=== PATIENT | female | born 1950 | race Caucasian/White ===

== ENCOUNTER → 2016-10-30 | Outpatient (CLI) | payer MEDICARE | END | disposition home or self-care (01) | LOC: BFHH 09:45 | PROVIDERS: ATTEND Family Medicine | DX: I11.0 Hypertensive heart disease with heart failure (principal); I50.42 Chronic combined systolic (congestive) and diastolic (congestive) heart failure; E03.9 Hypothyroidism, unspecified; E78.4 Other hyperlipidemia; R53.83 Other fatigue ==

== ENCOUNTER → 2017-06-11 | Outpatient (CLI) | payer MEDICARE | END | disposition home or self-care (01) | LOC: GMAJ 16:30 | PROVIDERS: ATTEND Family Medicine | DX: I50.32 Chronic diastolic (congestive) heart failure (principal); R06.02 Shortness of breath ==

== ENCOUNTER 2017-07-22 02:11 | Emergency (ER) | payer MEDICARE, MEDICAID ==
[2017-07-22 02:41] VITALS: TEMP 98
[2017-07-22] MEDS ORDERED: ONDANSETRON ODT 8 MG TAB SL ONE (02:48)
--- NOTE | 2017-07-22 03:55 | RAD ---
Examination: XR ABDOMEN 2 VIEWS SUPINE ERECT dated 07/22/2017 2:47 AM GUEST SERVICES ASSOCIATE History: nausea Comparison: None Technique: Frontal view of the chest, abdomen, and pelvis. FINDINGS: The lungs are clear. Unremarkable cardiac silhouette. No free air. A probable G-tube projects over the epigastric region. There is a left-sided catheter with a port. Right upper quadrant cholecystectomy clips. General paucity of bowel gas. No suspicious calcifications. IMPRESSION: Nonspecific general paucity of bowel gas. Otherwise no acute disease. Electronically signed by: Dominic Zabala MD 07/22/2017 3:53 AM GUEST SERVICES ASSOCIATE
--- NOTE | 2017-07-22 06:47 | ED.PDOC ---
History of Present Illness - General Chief Complaint: GI Problem Stated Complaint: feels sick, vomited x 1 Time Seen by Provider: 07/22/17 02:41 Source: patient Exam Limitations: no limitations - History of Present Illness Initial Comments: he patient is a 67-year-old female presenting to the emergency room secondary to reported nausea and vomiting for the last 4-6 hours prior to arrival. The patient reports she had some mild constipation and took a different laxative and she normally does. Within an hour she started having stomach cramping and what she reports is vomiting. EMS has not seen any evidence of any vomitus nor have recent she's been here. She retches some. She definitely does have anxiety. There is definitely an aspect of attention seeking. she does have a very long list of legitimate medical problems obviously. Physical exam was not really reveal any new definitive issue. Review of systems is struggling for a number of positive chronic findings all of which the patient reports a smile. The patient is very talkative. She does not retch at all when she is talking about her multitude of medical problems. It is when she is left alone that she starts retching. No evidence of any fever or sore throat. Timing/Duration: 4-6 hours Severity: moderate Improving Factors: nothing Worsening Factors: nothing Associated Symptoms: loss of appetite, malaise, nausea/vomiting Allergies/Adverse Reactions: Allergies Tetanus Toxoid Allergy (Verified 07/22/17 02:41) Home Medications: Ambulatory Orders Cephalexin Monohydrate [Keflex] 500 mg PO Q8H #20 cap 07/22/17 Review of Systems - Review of Systems Review of Systems: 07/22/17 06:47 for new symptoms only: Constitutional: States: malaise EENTM: States: no symptoms reported Respiratory: States: no symptoms reported Cardiology: States: no symptoms reported Gastrointestinal/Abdominal: States: abdominal pain - cramping, nausea, vomiting Musculoskeletal: States: no symptoms reported Skin: States: no symptoms reported Neurological: States: anxiety Endocrine: States: no symptoms reported All other Systems: No Change from Baseline Past Medical History (General) - Patient Medical History Hx Asthma: Yes Hx of COPD: Yes Hx Diabetes: No Hx MRSA: Yes - 2016 MRSA Source:: Wound Surgical History: cholecystectomy - Vaccination History Hx Tetanus, Diphtheria Vaccination: No Hx Influenza Vaccination: No - Triage Comment ED Triage Comment: states became sick after getting up to use restroom. Vomited x 1 Family Medical History - Family History Father Family History: Unknown Physical Exam - Physical Exam General Appearance: Alert, Anxious, No apparent distress Eye Exam: bilateral normal Ears, Nose, Throat: hearing grossly normal, normal ENT inspection, normal pharynx Neck: supple, normal inspection Respiratory: lungs clear, normal breath sounds, no respiratory distress, no accessory muscle use Cardiovascular/Chest: normal peripheral pulses, regular rate, rhythm, no edema Peripheral Pulses: radial,right: 2+, radial,left: 2+, dorsalis pedis,right: 2+, dorsalis pedis,left: 2+ Gastrointestinal/Abdominal: soft, other - morbidly obese with multiple obvious hernias none which appear to be particularly painful to palpation Rectal Exam: deferred Extremity: non-tender, no calf tenderness, normal capillary refill, pedal edema - ild chronic Neurologic: alert, oriented x 3, other - significant anxiety Skin Exam: normal color Comments: Vital Signs - 24 hr 07/22/17 02:23 Temperature 98.0 F Pulse Rate [ 54 L Right] Respiratory 18 Rate Blood Pressure 185/84 [Left Arm] O2 Sat by Pulse 96 Oximetry Progress - Progress Progress: 07/22/17 06:50 the patient is a 67-year-old female presenting to the emergency room with abdominal cramping that is most likely due to her laxative. She is to increase her fluid intake and increase her fiber intake. We did additionally find a urinary tract infection that does seem likely to be clinically significant. The patient received a dose of Rocephin here and is going to be placed on Keflex 3 times daily for the next 7 days. Urine cultures were being performed. She is to follow-up with her primary care doctor early next week for results of the culture results and change antibiotic therapy if needed. ER warnings were given for any acute worsening. She needs to maintain a bland diet today. She needs to keep follow-up with her home health. he patient is additionally to receive a dose of Diflucan here for mild intertrigo. - Results/Orders Results/Orders: Laboratory Tests 07/22/17 07/22/17 07/22/17 03:45 03:45 03:45 WBC 9.1 RBC 4.29 Hgb 13.3 Hct 39.0 MCV 90.8 MCH 31.0 MCHC 34.1 RDW 12.1 Plt Count 233 MPV 9.2 Absolute Neuts (auto) 6.10 Absolute Lymphs (auto) 2.20 Absolute Monos (auto) 0.60 Absolute Eos (auto) 0.10 Absolute Basos (auto) 0.00 Neutrophils % 67.9 Lymphocytes % 24.5 Monocytes % 6.1 Eosinophils % 1.1 Basophils % 0.4 Sodium 140 Potassium 3.8 Chloride 101 Carbon Dioxide 29 Anion Gap 13.8 BUN 7 Creatinine < 0.40 L BUN/Creatinine Ratio 17.0 Random Glucose 158 H Serum Osmolality 280.7 Lactic Acid 1.3 Calcium 9.2 Magnesium 2.0 Total Bilirubin 0.5 AST 28 ALT 27 Alkaline Phosphatase 74 Creatine Kinase 118 CK-MB (CK-2) 3.6 CK-MB (CK-2) % Not Reportable Troponin I 0.02 B-Natriuretic Peptide 37.7 Serum Total Protein 7.4 Albumin 4.0 Globulin 3.4 Albumin/Globulin Ratio 1.2 Amylase 29 Lipase 22 Urine Color Urine Appearance Urine pH Ur Specific [place] Urine Protein Urine Glucose (UA) Urine Ketones Urine Blood Urine Nitrite Urine Bilirubin Urine Urobilinogen Ur Leukocyte Esterase Urine RBC Urine WBC Ur Epithelial Cells Urine Bacteria 07/22/17 06:00 WBC RBC Hgb Hct MCV MCH MCHC RDW Plt Count MPV Absolute Neuts (auto) Absolute Lymphs (auto) Absolute Monos (auto) Absolute Eos (auto) Absolute Basos (auto) Neutrophils % Lymphocytes % Monocytes % Eosinophils % Basophils % Sodium Potassium Chloride Carbon Dioxide Anion Gap BUN Creatinine BUN/Creatinine Ratio Random Glucose Serum Osmolality Lactic Acid Calcium Magnesium Total Bilirubin AST ALT Alkaline Phosphatase Creatine Kinase CK-MB (CK-2) CK-MB (CK-2) % Troponin I B-Natriuretic Peptide Serum Total Protein Albumin Globulin Albumin/Globulin Ratio Amylase Lipase Urine Color Yellow Urine Appearance Cloudy Urine pH 7.0 Ur Specific [place] 1.020 Urine Protein Negative Urine Glucose (UA) Negative Urine Ketones 15 H Urine Blood Small H Urine Nitrite Negative Urine Bilirubin Negative Urine Urobilinogen 0.2 Ur Leukocyte Esterase Trace H Urine RBC 3-5 H Urine WBC 20-30 H Ur Epithelial Cells 3-5 Urine Bacteria 4+ H x-ray of the abdomen really shows only chronic findings. No evidence of any bowel obstruction. No perforation. No large amount oflocalized stool. Departure - Departure Clinical Impression: Cystitis, Intertrigo Nausea & vomiting Qualifiers: Vomiting type: unspecified Vomiting Intractability: non-intractable Qualified Code(s): R11.2 - Nausea with vomiting, unspecified Disposition: Discharge to Home for HH Condition: Fair Departure Forms: ED Discharge - Pt. Copy, Patient Portal Self Enrollment Instructions: DI for Urinary Tract Infection (UTI), DI for Intertrigo Diet: bland diet - High-fiber low-fat Activity: increase activity as tolerated Referrals: Dominic Rapp MD [Primary Care Provider] - 1-5 Days Prescriptions: Cephalexin Monohydrate [Keflex] 500 mg PO Q8H #20 cap Home Medications: Ambulatory Orders Cephalexin Monohydrate [Keflex] 500 mg PO Q8H #20 cap 07/22/17 Additional Instructions: the patient is a 67-year-old female presenting to the emergency room with abdominal cramping that is most likely due to her laxative. She is to increase her fluid intake and increase her fiber intake. We did additionally find a urinary tract infection that does seem likely to be clinically significant. The patient received a dose of Rocephin here and is going to be placed on Keflex 3 times daily for the next 7 days. Urine cultures were being performed. She is to follow-up with her primary care doctor early next week for results of the culture results and change antibiotic therapy if needed. ER warnings were given for any acute worsening. She needs to maintain a bland diet today. She needs to keep follow-up with her home health. he patient is additionally to receive a dose of Diflucan here for mild intertrigo.
[2017-07-22] MEDS ORDERED: cefTRIAXone SODIUM 1 GM VIAL IM ONE (06:56)
[2017-07-22] MEDS ORDERED: FLUCONAZOLE 100 MG TAB PO ONE (06:56)
[2017-07-22] MEDS ORDERED: LIDOCAINE 1% 10 ML VIAL INJ ONE (07:05)
[2017-07-22 08:24] VITALS: BP 137/90; O2SAT 99
== END 2017-07-22 08:24 | disposition home health service (06) ==
LOC: ER 02:11
DX: N30.00 Acute cystitis without hematuria (principal); R11.2 Nausea with vomiting, unspecified; L30.4 Erythema intertrigo; J44.9 Chronic obstructive pulmonary disease, unspecified; J45.909 Unspecified asthma, uncomplicated; Z90.49 Acquired absence of other specified parts of digestive tract; Z86.14 Personal history of Methicillin resistant Staphylococcus aureus infection; Z88.7 Allergy status to serum and vaccine
CPT/HCPCS: 36415; 74020; 80053; 81001; 82150; 82550; 82553; 83605; 83690; 83735; 83880; 84484; 85025; 87086; 87502; J0696

== ENCOUNTER 2017-07-25 15:43 | Emergency (ER) | payer MEDICARE, MEDICAID ==
--- NOTE | 2017-07-25 16:35 | ED.PDOC ---
History of Present Illness - General Time Seen by Provider: 07/25/17 16:07 Source: patient Exam Limitations: no limitations - History of Present Illness Initial Comments: the patient is a 67-year-old female presenting to the emergency room after a fall at home today. She was using her rolling walker when he got out from under her and she fell and tried to catch herself with her right hand. She has pain towards the wrist on the radius side. No gross deformity. There is some mild swelling that may or may not be chronic. Range of motion passively appears to be preserved. No obvious crepitus. She appears to be neurovascularly at her baseline. Timing/Duration: 1-3 hours Severity: moderate Improving Factors: immobilization Worsening Factors: movement Associated Symptoms: denies symptoms Allergies/Adverse Reactions: Allergies Tetanus Toxoid Allergy (Verified 07/22/17 02:41) Home Medications: Ambulatory Orders Cephalexin Monohydrate [Keflex] 500 mg PO Q8H #20 cap 07/22/17 Review of Systems - Review of Systems Review of Systems: 07/25/17 16:34 for new symptoms only, as per patient. 07/25/17 16:34 Constitutional: States: no symptoms reported EENTM: States: no symptoms reported Respiratory: States: no symptoms reported, cough Gastrointestinal/Abdominal: States: no symptoms reported Genitourinary: States: no symptoms reported Musculoskeletal: States: see HPI Skin: States: no symptoms reported Neurological: States: no symptoms reported Endocrine: States: no symptoms reported All other Systems: No Change from Baseline Past Medical History (General) - Patient Medical History Hx Asthma: Yes Hx of COPD: Yes Hx Diabetes: No Hx MRSA: Yes - 2015 MRSA Source:: Wound - Vaccination History Hx Tetanus, Diphtheria Vaccination: No Hx Influenza Vaccination: No Family Medical History - Family History Father Family History: Unknown Physical Exam - Physical Exam General Appearance: Alert, Comfortable, No apparent distress, Other - he patient is smiling and joking Eye Exam: bilateral normal Ears, Nose, Throat: hearing grossly normal, normal ENT inspection, normal pharynx Neck: non-tender, supple Respiratory: normal breath sounds, no respiratory distress, no accessory muscle use Cardiovascular/Chest: normal peripheral pulses, other - egular rate Peripheral Pulses: radial,right: 2+, radial,left: 2+ Gastrointestinal/Abdominal: soft - morbidly obese. Chronic large hernias. 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 She appears to have injured her right wrist. X-ray shows no evidence of overt fracture or dislocation. If pain persists or worsens over the coming week and a repeat x- ray may be warranted. The patient is going to be placed in a lace up wrist splint to allow for maximum functionality and prevent further falls. She should follow up with her primary care doctor next week. She should ambulate carefully to prevent further falls. ER warnings were given for any significant worsening. 07/25/17 16:45 Departure - Departure Clinical Impression: Sprain of wrist, right Qualifiers: Encounter type: initial encounter Qualified Code(s): S63.501A - Unspecified sprain of right wrist, initial encounter Disposition: Discharge to Home or Self Care Condition: Fair Diet: diabetic diet Activity: no pushing/pulling with affected limb Referrals: Dominic Rapp MD [Primary Care Provider] - 1-5 Days Home Medications: Ambulatory Orders Cephalexin Monohydrate [Keflex] 500 mg PO Q8H #20 cap 07/22/17 Additional Instructions: the patient is a 67-year-old female that fell at home. She appears to have injured her right wrist. X-ray shows no evidence of overt fracture or dislocation. If pain persists or worsens over the coming week and a repeat x- ray may be warranted. The patient is going to be placed in a lace up wrist splint to allow for maximum functionality and prevent further falls. She should follow up with her primary care doctor next week. She should ambulate carefully to prevent further falls. ER warnings were given for any significant worsening.
--- NOTE | 2017-07-25 16:43 | RAD ---
EXAM DESCRIPTION: Wrist,Right 3 Views CLINICAL HISTORY: 67 years Female, fall at home COMPARISON: Right hand dated May 22, 2010. FINDINGS: Compared to the previous examination, there is a question of minimal cortical irregularity at the ulnar margin of the distal right radius, where a very subtle nondisplaced fracture is difficult to exclude. There is no other evidence of acute fracture or dislocation or destructive bony lesion. Joint spaces appear maintained. Probable slight regional soft tissue swelling. IMPRESSION: Equivocal finding in the distal right radius. Please see comments above. Short-term follow-up films are suggested. If necessary, CT could be obtained. Electronically signed by: Kieran Lawrence 07/25/2017 4:41 PM [facility]
[2017-07-26 18:57] VITALS: BP 186/83; TEMP 97; O2SAT 98
== END 2017-07-25 17:00 | disposition home or self-care (01) ==
LOC: ER 15:43
DX: S63.501A Unspecified sprain of right wrist, initial encounter (principal); J45.909 Unspecified asthma, uncomplicated; J44.9 Chronic obstructive pulmonary disease, unspecified; E66.01 Morbid (severe) obesity due to excess calories; Z68.43 Body mass index [BMI] 50.0-59.9, adult; Z88.7 Allergy status to serum and vaccine; W18.39XA Other fall on same level, initial encounter; Y92.009 Unspecified place in unspecified non-institutional (private) residence as the place of occurrence of the external cause

== ENCOUNTER → 2017-09-03 | Outpatient (CLI) | payer MEDICARE, MEDICAID | LOC: BFHH 15:05 | PROVIDERS: ATTEND Family Medicine | DX: N39.0 Urinary tract infection, site not specified (principal) ==

== ENCOUNTER 2017-09-21 12:05 | Emergency (ER) | payer MEDICARE, MEDICAID ==
[2017-09-21] MEDS ORDERED: IPRATROPIUM/ALBUTEROL 3 ML VIAL NEB ONE (12:18)
--- NOTE | 2017-09-21 12:21 | ED.PDOC ---
History of Present Illness - General Chief Complaint: Respiratory Problem Stated Complaint: sob Time Seen by Provider: 09/21/17 12:17 Source: patient, RN notes reviewed Exam Limitations: no limitations - History of Present Illness Timing/Duration: 24 hours Severity: moderate Activities at Onset: none Possible Cause: chronic episodes Improving Factors: rest Worsening Factors: movement Associated Symptoms: cough, wheezing Allergies/Adverse Reactions: Allergies Tetanus Toxoid Allergy (Verified 09/21/17 12:15) Home Medications: Ambulatory Orders Cephalexin Monohydrate [Keflex] 500 mg PO Q8H #20 cap 07/22/17 Ipratropium/Albuterol (ER Disp [Duoneb ER DISPENSE] 3 ml NEB Q4H #7 vial Ipratropium/Albuterol [Duoneb] 3 ml INH QID #30 vial 09/21/17 Prednisone [Deltasone] 20 mg PO BID #10 tab 09/21/17 levoFLOXacin [Levaquin] 500 mg PO DAILY #7 tab 09/21/17 Review of Systems - Review of Systems Constitutional: States: weakness. Denies: chills, fever EENTM: Denies: nose congestion, throat pain Respiratory: States: cough, short of breath, wheezing Cardiology: Denies: chest pain, edema Gastrointestinal/Abdominal: States: abdominal pain. Denies: diarrhea, nausea, vomiting Genitourinary: States: no symptoms reported Musculoskeletal: Denies: joint pain, muscle pain Skin: Denies: rash Neurological: States: weakness. Denies: headache, numbness Endocrine: States: no symptoms reported Hematologic/Lymphatic: States: no symptoms reported Past Medical History (General) - Patient Medical History Hx Stroke: No Hx Asthma: Yes Hx of COPD: Yes Hx Congestive Heart Failure: Yes Hx Diabetes: No Hx MRSA: Yes - 2015 MRSA Source:: Wound Surgical History: cholecystectomy, other - Vaccination History Hx Tetanus, Diphtheria Vaccination: No - allergic Hx Influenza Vaccination: Yes Hx Pneumococcal Vaccination: No - Social History Hx Tobacco Use: No - Female History Patient is a Female of Child Bearing Age (10 -59 yrs old): No Family Medical History - Family History Father Family History: Unknown Physical Exam - Physical Exam General Appearance: Alert, Obvious distress Eyes, Ears, Nose, Throat Exam: PERRL/EOMI, normal ENT inspection Neck: non-tender, full range of motion Respiratory: chest non-tender, decreased breath sounds, wheezing Cardiovascular/Chest: regular rate, rhythm, no edema Gastrointestinal/Abdominal: normal bowel sounds, soft, other - nonincarcerated umbilical hernia, tender Extremity: normal inspection, no pedal edema Skin Exam: normal color, warm/dry Lymphatic: no adenopathy Departure - Departure Clinical Impression: COPD exacerbation Disposition: Discharge to Home or Self Care Condition: Fair Departure Forms: ED Discharge - Pt. Copy, Patient Portal Self Enrollment Referrals: Dominic Rapp MD [Primary Care Provider] - 1-2 Weeks Prescriptions: Ipratropium/Albuterol [Duoneb] 3 ml INH QID #30 vial Ipratropium/Albuterol (ER Disp [Duoneb ER DISPENSE] 3 ml NEB Q4H #7 vial levoFLOXacin [Levaquin] 500 mg PO DAILY #7 tab Prednisone [Deltasone] 20 mg PO BID #10 tab Home Medications: Ambulatory Orders Cephalexin Monohydrate [Keflex] 500 mg PO Q8H #20 cap 07/22/17 Ipratropium/Albuterol (ER Disp [Duoneb ER DISPENSE] 3 ml NEB Q4H #7 vial Ipratropium/Albuterol [Duoneb] 3 ml INH QID #30 vial 09/21/17 Prednisone [Deltasone] 20 mg PO BID #10 tab 09/21/17 levoFLOXacin [Levaquin] 500 mg PO DAILY #7 tab 09/21/17
--- NOTE | 2017-09-21 12:42 | RAD ---
EXAM DESCRIPTION: Chest,1 View CLINICAL HISTORY: sob COMPARISON: Portable chest x-ray July 22, 2017. FINDINGS: Portable technique frontal view the thorax was acquired. Decreased inspiration with bronchovascular crowding is present. Cephalization. Increased interstitial lung markings. Bronchial cuffing. Heart size is within normal limits. Large patient body habitus. IMPRESSION: Combined findings can be seen with interstitial pulmonary edema and/or bronchiolitis. Electronically signed by: Ross Loo MD 09/21/2017 12:42 PM HIGH VOLTAGE ELECTRICIAN
[2017-09-21] MEDS ORDERED: predniSONE 20 MG TAB PO ONE (14:38)
[2017-09-21 14:53] VITALS: O2SAT 90
[2017-09-21 15:43] VITALS: BP 141/72; TEMP 98.2
== END 2017-09-21 15:43 | disposition home or self-care (01) ==
LOC: ER 12:05
DX: J44.1 Chronic obstructive pulmonary disease with (acute) exacerbation (principal); I50.9 Heart failure, unspecified
CPT/HCPCS: 36415; 36600; 71045; 80053; 81001; 82803; 82805; 83880; 85025; 94640; J7512; J7620

== ENCOUNTER 2017-09-25 14:52 | Observation (INO) | payer MEDICARE, MEDICAID ==
[2017-09-25] MEDS ORDERED: SODIUM CHLORIDE 0.9% (FLUSH) 10 ML SYG IV PRN ×2 (16:37→20:18)
[2017-09-25] MEDS ORDERED: IPRATROPIUM/ALBUTEROL 3 ML VIAL INH ONE (16:37)
[2017-09-25] MEDS ORDERED: IPRATROPIUM/ALBUTEROL 3 ML VIAL NEB ONE (16:40)
--- NOTE | 2017-09-25 17:03 | RAD ---
EXAM DESCRIPTION: Chest,1 View CLINICAL HISTORY: Shortness of breath COMPARISON: Chest radiograph dated September 21, 2017 FINDINGS: Single upright portable frontal view of the chest. Cardiac silhouette shows normal heart size. Mild prominence of the interstitial markings bilaterally. Mild peribronchial wall thickening/cuffing bilaterally. Lungs clear without focal consolidative infiltrates. No pleural effusion. No pneumothorax. Large body habitus which somewhat limits evaluation. IMPRESSION: 1. Overall, not today's examination is not significantly changed in September 21, 2017. 2. Mildly prominent interstitial markings bilaterally along with peribronchial wall thickening/cuffing. This may represent mild interstitial edema and/or bronchitis. 3. Lungs are clear without focal consolidative infiltrates. Electronically signed by: Carlitos Griffin MD 09/25/2017 5:02 PM [facility]
[2017-09-25] MEDS: methylPREDNISolone SODIUM SUC 125 MG/2 ML VIAL IV ONE ×2 (17:06→18:08)
--- NOTE | 2017-09-25 17:28 | ED.PDOC ---
History of Present Illness - General Chief Complaint: Neuro Symptoms/Deficits Stated Complaint: SOB Time Seen by Provider: 09/25/17 16:37 Source: patient - History of Present Illness Initial Comments: PT REPORTS INCREASED SOB AND WEAKNESS TODAY. PT HAS HISTORY OF COPD AND REPORTS SHE HAS BEEN COUGHING MORE. Timing/Duration: getting worse Severity: moderate Improving Factors: immobilization, rest Worsening Factors: movement Associated Symptoms: cough, shortness of breath, weakness Allergies/Adverse Reactions: Allergies Tetanus Toxoid Allergy (Verified 09/21/17 12:15) Home Medications: Ambulatory Orders Cephalexin Monohydrate [Keflex] 500 mg PO Q8H #20 cap 07/22/17 Ipratropium/Albuterol (ER Disp [Duoneb ER DISPENSE] 3 ml NEB Q4H #7 vial Ipratropium/Albuterol [Duoneb] 3 ml INH QID #30 vial 09/21/17 Prednisone [Deltasone] 20 mg PO BID #10 tab 09/21/17 levoFLOXacin [Levaquin] 500 mg PO DAILY #7 tab 09/21/17 Review of Systems - Review of Systems Constitutional: States: weakness. Denies: chills, fever EENTM: Denies: nose congestion, throat pain Respiratory: States: see HPI, cough, short of breath, wheezing Cardiology: Denies: chest pain, palpitations Gastrointestinal/Abdominal: Denies: abdominal pain, nausea, vomiting Genitourinary: Denies: dysuria, frequency Musculoskeletal: Denies: joint pain, joint swelling Skin: Denies: dryness, lesions Neurological: Denies: headache, numbness Endocrine: States: no symptoms reported Hematologic/Lymphatic: States: no symptoms reported Past Medical History (General) - Patient Medical History Hx Stroke: No Hx Asthma: Yes Hx of COPD: Yes Hx Congestive Heart Failure: Yes Hx Diabetes: No Hx MRSA: Yes - 2016 MRSA Source:: Wound - Vaccination History Hx Tetanus, Diphtheria Vaccination: No - allergic Hx Influenza Vaccination: Yes Hx Pneumococcal Vaccination: No - Social History Hx Tobacco Use: No Family Medical History - Family History Father Family History: Unknown Physical Exam - Physical Exam General Appearance: Alert, Obvious distress, Obese Eye Exam: bilateral normal Ears, Nose, Throat: hearing grossly normal Neck: supple, normal inspection Respiratory: wheezing - THROUGHOUT Cardiovascular/Chest: regular rate, rhythm, no murmur Gastrointestinal/Abdominal: non tender, soft, other - LARGE PANNUS WITH ERYTHEMA NOTED BENEATH, L>R Back Exam: normal inspection Extremity: non-tender, normal inspection Neurologic: no motor/sensory deficits, alert, normal mood/affect, oriented x 3 Skin Exam: normal color, warm/dry Progress - Progress Progress: 09/25/17 17:29 PT REFUSED IV SOLU MEDROL. 09/25/17 18:11 PT HAS SOME IMPROVEMENT IN WHEEZING AFTER 2 DUONEBS AND NOW AGREES TO TAKE IV SOLU MEDROL. PT IS AFRAID OF BECOMING STEROID DEPENDENT. PT ALSO REPORTS THAT SHE HAS NOT TAKEN HER MEDS IN SEVERAL DAYS DUE TO THE PAIN FROM [place]. 09/25/17 18:12 PREVIOUS RECORDS REVIEWED REVEALING PTS LAST VISIT WAS 4 DAYS AGO IN WHICH PT WAS DIAGNOSED WITH COPD EXACERBATION AND STARTED ON LEVAQUIN AND STEROIDS WHICH SHE HAS NOT TAKEN. - EKG/XRAY/CT EKG: Sinus - @61BPM, NL INTERVALS, NL AXIS, nonspecific ST T wave Chg - NO OLD EKG FOR COMPARISON XRAY: chest - BRONCHITIS Departure - Departure Clinical Impression: Acute bronchitis, COPD exacerbation, Noncompliance with medication regimen Time of Disposition: 18:13 Disposition: Admit Patient Condition: Fair Departure Forms: ED Discharge - Pt. Copy, Patient Portal Self Enrollment Referrals: Dominic Rapp MD [Primary Care Provider] - 1-2 Weeks Home Medications: Ambulatory Orders Cephalexin Monohydrate [Keflex] 500 mg PO Q8H #20 cap 07/22/17 Ipratropium/Albuterol (ER Disp [Duoneb ER DISPENSE] 3 ml NEB Q4H #7 vial Ipratropium/Albuterol [Duoneb] 3 ml INH QID #30 vial 09/21/17 Prednisone [Deltasone] 20 mg PO BID #10 tab 09/21/17 levoFLOXacin [Levaquin] 500 mg PO DAILY #7 tab 09/21/17 Decision To Admit - Decistion To Admit Decision to Admit Reason: Admit from ER Decision to Admit Date: 09/25/17 - CASE DISCUSSED WITH KEISHA STRONG WHO AGREES TO ADMIT Decision to Admit Time: 18:14
[2017-09-25] MEDS ORDERED: MAGNESIUM SULFATE PREMIX 2GM 2 GM in PREMIX BAG 1 BAG IVPB ONE (17:56)
[2017-09-25] MEDS ORDERED: MAGNESIUM SULFATE PREMIX 2GM 50 ML IVPB ONE (18:00)
--- NOTE | 2017-09-25 19:02 | HP ---
SUPERVISING PHYSICIAN: Cedric Pedraza MD CHIEF COMPLAINT: Increasing shortness of breath. HISTORY OF PRESENT ILLNESS: Ms. Newton is a 67 year-old female patient that had been previously seen in the Emergency Room this past week on the for upper respiratory infection. She was started on antibiotics and given steroids. Apparently she went home and was unable to take her medications due to difficulty with thrush and her symptoms of shortness of breath continued to worsen until she presented today. She does have a history of chronic obstructive pulmonary disease and reports that she is having a significant cough that has been becoming more productive. She denied any chest pains. She notes that she basically been sitting in the chair for most of the week, not able to do anything. The patient is a very poor historian and no medical charts were available for review. Laboratory studies in the Emergency Room, CBC showed a normal white count with no shift in the differential, blood gas analysis showed a pH of 7.47 with PO2 of 66 which was on room air with a PC02 of 38, bicarb 26. Her general chemistries showed she had a low potassium at 3.3, creatinine being at 0.43 with a BUN of 16. Liver functions all within normal limits. Troponin is less than 0.02. Urinalysis was pending. Radiology exam included single view chest x-ray which showed no significant change from September 21, 2017 indicating mild prominent interstitial markings, bilateral along with peribronchial wall thickening and cuffing which could represent edema and/or bronchitis. Lungs were clear without any focal consolidation or infiltrates. Her initial vital signs showed she was afebrile with temperature of 98.6, saturation 92% on nasal cannula at 2 liters. She was having significant wheezing on exam and decreased air movement and was given Duoneb treatments along with 2 grams of magnesium and Solu-Medrol 125 mg. Her symptoms improved and now she is going to be placed in observation for further treatment of chronic obstructive pulmonary disease exacerbation having failed to respond to outpatient treatment with advancing bronchitis. She is admitted in stable condition. PAST MEDICAL HISTORY: 1. Chronic obstructive pulmonary disease. 2. Congestive heart failure with no echocardiogram for current review, uncertain etiology or type. PAST SURGICAL HISTORY: 1. Cholecystectomy. 2. Lap band surgery. 3. Right foot surgery. HOME MEDICATIONS: Awaiting updated list from electronic medical records for review. No chronic medications presented by patient. ALLERGIES: TETANUS TOXOID. FAMILY HISTORY: Noncontributory. SOCIAL HISTORY: The patient is retired. She lives alone in [place] and apparently has a caregiver that comes at least 4 or 5 days a week. She is . She has never smokes, used alcohol or illicit drugs. REVIEW OF SYSTEMS: CONSTITUTIONAL: Denies fevers, chills, noted she has had some weakness. HEENT: Denies nasal congestion, earaches, does note she has had a sore throat. RESPIRATORY: As noted in history of present illness, a cough, shortness of breath, wheezing. CARDIOVASCULAR: Denies chest pain, palpitations or syncopal episodes. GASTROINTESTINAL: Denies nausea, vomiting, diarrhea or constipation. GENITOURINARY: Notes that she has not had much output today but denies any dysuria or increased frequency or hematuria. She is having some vaginal itching. INTEGUMENTARY: Notes she has a yeast infection underneath her panniculus. No other lesions are noted. NEUROLOGICAL: Denies any headaches, numbness, changes in vision, syncopal episodes. PHYSICAL EXAMINATION: VITAL SIGNS: Temperature 98.6, pulse 81, blood pressure 168/82, saturation 92% with respirations of 20 on two liters nasal cannula. Admission weight 100.0 kilograms. GENERAL: On admission to the medical/surgical floor the patient appeared to be in no acute distress. She is alert but obviously obese. HEENT: Tympanic membranes partially obscured with cerumen. Oropharynx pink with notable white plaque to the back of the pharyngeal area with mucosal membranes being severely dry. No lesions noted. NECK: Supple, non-tender with full range of motion. CHEST: Notable inspiration wheezes throughout both lung carrero with decreased breath sounds bilaterally but no rhonchi or rales noted. CARDIOVASCULAR: Regular rate and rhythm without appreciable murmurs, gallops, or rubs. ABDOMEN: Non-tender but obese with a large pannus with erythema noted with a rash being greater on the left than the right. EXTREMITIES: No cyanosis, clubbing, or edema. NEUROLOGIC: She is alert and oriented x3. Cranial nerves II through XII are grossly intact. LABORATORY: CBC showed to be within normal limits with a white count of 7,100. Blood gas analysis showed a pH of 7.47 with PC02 of 66, bicarb 26.9 with PC02 of 38. 02 saturation 96% on room air. Chemistries showed a low potassium of 3.3 with BUN 16, creatinine 0.43, glucose 106. Hemoglobin A1C 5.4. Calcium normal at 9.3. Liver functions all within normal limits. Troponin showed less than 0.02. Urinalysis pending. MICROBIOLOGY: No specimens were collected for blood cultures but sputum cultures were pending. Strep culture and strep screen pending. RADIOLOGY: Single view chest x-ray in the Emergency Room per radiology interpretation showed overall no significant change from previous examination on September 21, 2017 indicating mildly prominent interstitial markings bilaterally along with peribronchial wall thickening and cuffing which could represent interstitial edema versus bronchitis. Lungs were clear without any focal consolidation or infiltrates. ASSESSMENT: 1. Exacerbation of chronic obstructive pulmonary disease having failed to respond to outpatient treatment plan. 2. Acute bronchitis as noted on radiographic studies with patient failing to respond to previous outpatient treatment plan secondary to poor medical compliance. 3. Thrush with patient unable to take significant oral medications having made her noncompliance with previous antibiotic regiment and steroids from initial treatment plan for her exacerbation of chronic obstructive pulmonary disease. 4. Intertrigo of the panniculus with questionable vaginal yeast infection with urinalysis pending. 5. Severe obesity with body mass index of 46.1. 6. Electrolyte imbalance with a mild hypokalemia. 7. Mild dehydration. PLAN: The patient is going to be placed in observation tonight for initiation of treatment for underlying bronchitis. She will be initiated on antibiotics with Rocephin and azithromycin. Will start her on aggressive bronchial hygiene with Duoneb treatments q.i.d. Will start her on corticosteroids with Solu- Medrol. She got a loading dose of 125 mg in the Emergency Room. This will be continued with 60 mg every 6 hours for 3 doses. I started her on some swish and swallow Nystatin for the thrust as well as will give her 150 mg of Diflucan p.o. I am waiting for urinalysis to further target possible urinary tract infection. Will give her some IV fluids for correction underlying dehydration with normal saline with 20 of potassium at 125 in efforts to help correct the hypokalemia. She will be on a regular diet. Will start her on DVT prophylaxis as per protocol. We anticipate her length of stay to at least 1 to 2 days. Will plan to reevaluate with laboratory studies in the morning as well as repeat chest x-ray and until discharge, we will continue to monitor him closely and treat appropriately. #[id number] [facility]
[2017-09-25] MEDS ORDERED: NYSTATIN POWDER 15GM BTTL TOP ONE (20:14)
[2017-09-25] MEDS ORDERED: ALBUTEROL SULFATE 2.5 MG/3 ML VIAL NEB PRN (20:18)
[2017-09-25] MEDS ORDERED: ACETAMINOPHEN 325 MG TAB PO PRN (20:18)
[2017-09-25] MEDS ORDERED: IPRATROPIUM/ALBUTEROL 3 ML VIAL INH SCH (20:20)
[2017-09-25] MEDS ORDERED: IV SET AND CAP CHANGE INJ INJ SCH (20:30)
[2017-09-25] MEDS ORDERED: cefTRIAXone SODIUM 1 GM in SODIUM CHL 0.9% 50ML MIN-BAG+ 50 ML IVPB SCH (20:30)
[2017-09-25] MEDS ORDERED: methylPREDNISolone SODIUM SUC 125 MG/2 ML VIAL IV SCH (20:30)
[2017-09-25] MEDS ORDERED: AZITHROMYCIN 250 MG TAB PO SCH (20:30)
[2017-09-25] MEDS ORDERED: methylPREDNISolone SODIUM SUC 125 MG/2 ML VIAL ONE (20:36)
[2017-09-25] MEDS ORDERED: cefTRIAXone SODIUM 1 GM VIAL ONE (20:36)
[2017-09-25] MEDS ORDERED: SODIUM CHL 0.9% 50ML MIN-BAG+ 50 ML IVPB ONE (20:36)
[2017-09-25] MEDS ORDERED: FLUCONAZOLE 150 MG TAB PO ONE (20:44)
[2017-09-25] MEDS: KCL 20 MEQ/NS 1,000 ML IVS PRN (20:55)
--- NOTE | 2017-09-25 20:57 | PCM.CORE ---
Physician DVT/VTE - Nurse DVT Assessment & Total Each Risk Factor Represents 3 Points: Medical PT with Hx of [place], CHF, Severe infection/sepsis Each Risk Factor Represents 2 Points: Age 60-74 Each Risk Factor Represents 1 Point: Medical PT at Bed Rest Each Risk Factor is 1 Point: Obesity (BMI >25), Serious Lung disease (pnemonia < 1month, COPD, emphysema,etc) DVT Assessment Score: 8 - 5 or more Very High Risk Treatments: Early Ambulation *, Sequential Compression Device Pharmacological: Enoxaparin 40mg SQ Daily
[2017-09-25] MEDS ORDERED: ENOXAPARIN SODIUM 40 MG/0.4 ML SYG SUBCU SCH (21:00)
[2017-09-25] MEDS: NYSTATIN POWDER 15GM BTTL TOP SCH (21:01)
[2017-09-25] MEDS: NYSTATIN SUSPENSION 5 ML UD MT SCH (21:01)
[2017-09-25] MEDS ORDERED: METHOCARBAMOL 750 MG TAB PO PRN (22:02)
[2017-09-25] MEDS ORDERED: HYDROcodone 10MG/APAP 325MG 1 EA TAB PO PRN (22:02)
[2017-09-25] MEDS: ALPRAZolam 0.5 MG TAB PO SCH (22:17)
[2017-09-25] MEDS ORDERED: fentaNYL PATCH 100MCG/HR 1 EA PATCH TOP SCH (22:30)
[2017-09-26] MEDS: methylPREDNISolone SODIUM SUC 125 MG/2 ML VIAL IV SCH ×3 (00:22→12:27)
[2017-09-26] MEDS: KCL 20 MEQ/NS 1,000 ML IVS PRN ×3 (05:20→22:33)
[2017-09-26] MEDS: PANTOPRAZOLE SODIUM IV 40 MG VIAL IV SCH (06:04)
--- NOTE | 2017-09-26 06:45 | RAD ---
EXAM DESCRIPTION: Chest,1 View CLINICAL HISTORY: Pneumonia COMPARISON: 09/25/2017 FINDINGS: Single frontal view of the chest. Tortuosity of thoracic aorta. Heart is not enlarged. Mildly prominent bilateral interstitial markings are stable. Peribronchial interstitial thickening. No lobar consolidation, pneumothorax, or large effusion. No displaced rib fractures identified. Upper abdominal soft tissues are unremarkable. IMPRESSION: 1. Stable appearance of the chest with mildly prominent bilateral interstitial markings and peribronchial interstitial thickening. This could be related to viral illness, reactive airways disease, or interstitial edema. 2. No acute pneumonic process. Electronically signed by: Wiliam Gao 09/26/2017 6:45 AM COUNTY ADMINISTRATOR
[2017-09-26] MEDS: BIFIDOBACTERIUM INFANTIS 4 MG CAP PO SCH (08:17)
[2017-09-26] MEDS: PREGABALIN 100 MG CAP PO SCH ×3 (08:17→20:36)
[2017-09-26] MEDS: NYSTATIN SUSPENSION 5 ML UD MT SCH ×4 (08:18→20:35)
[2017-09-26] MEDS: ALPRAZolam 0.5 MG TAB PO SCH ×3 (08:18→20:36)
[2017-09-26] MEDS: FISH OIL 1,200 MG CAP PO SCH ×3 (08:34→20:35)
[2017-09-26] MEDS: IPRATROPIUM/ALBUTEROL 3 ML VIAL NEB SCH ×4 (08:38→20:17)
[2017-09-26] MEDS: CALCIUM CARBONATE-VITAMIN D 500 MG TAB PO SCH ×3 (08:59→20:35)
[2017-09-26] MEDS: NYSTATIN POWDER 15GM BTTL TOP SCH ×4 (09:00→20:36)
[2017-09-26] MEDS ORDERED: CALCIUM CARBONATE-VITAMIN D 500 MG TAB PO SCH (09:00)
--- NOTE | 2017-09-26 18:26 | PN ---
DATE: 09/26/17 SUPERVISING PHYSICIAN: Cedric Pedraza M.D. SUBJECTIVE: The patient notes that she is feeling much better and has a decrease in her effort to breathe, and is not wheezing as much. She remains afebrile. The patient has noted that after starting the swish and swallow with Nystatin, she is now able to have easier oral intake. OBJECTIVE: VITAL SIGNS: Temperature 97.8, pulse 62, blood pressure 164/76, respirations 20, satting 94% on nasal cannula on 2 liters at rest. I's and O's show a positive balance of 440 with 1440 in, 1000 out. Weight is 100.5 kg. CHEST: Lungs are better aerated today with lung sounds heard more prominent throughout compared to admission, but continue to be diminished bilaterally, but no wheezing or rhonchi is noted. HEART: Regular rate and rhythm. ABDOMEN: Obese but soft, non-tender with positive bowel sounds. EXTREMITIES: No clubbing , cyanosis or edema. NEUROLOGIC: She is alert and oriented times three. LABORATORY: White count 4,100, hemoglobin 12.5, hematocrit 36.8, platelet count 240,000. Differential continues to show just a slight increase in neutrophils but no true left shift. Chemistries show normal electrolytes with potassium 3.6, BUN 13, creatinine less than 0.04, glucose 153, calcium 8.9. MICROBIOLOGY: Urine culture showed no growth at 24 hours. RADIOLOGY: Repeat chest x-ray single view chest today per radiology interpretation showed stable appearance of the chest with mild prominence and bilateral interstitial markings and peribronchial interstitial thickening which could represent a viral illness, reactive airway disease or interstitial edema but no acute pneumonic process. ASSESSMENT: 1. Exacerbation of chronic obstructive pulmonary disease having failed to respond to outpatient treatment plan. 2. Acute bronchitis as noted on radiographic studies with patient having failed to respond to treatment plan previously due to poor medical compliance from thrush showing good response now with initiation of corticosteroids and aggressive pulmonary hygiene. 3. Thrush with patient unable to take significant oral medications having made her noncompliant with previous antibiotic regiment and steroids on initial treatment plan for exacerbation of chronic obstructive pulmonary disease. 4. Intertrigo of the panniculus of the abdomen showing good response to Nystatin and treatment. 5. Severe obesity with body mass index of 46.1. 6. Electrolyte imbalance with a mild hypokalemia, improved. 7. Mild dehydration, improved with fluids. PLAN: The patient will continue with current plan of care with Rocephin and azithromycin and aggressive pulmonary care. She will continue on corticosteroids with Solu-Medrol with intention of tapering after 3 doses to p.o. dose in the morning with anticipation of hopefully being able to discharge home. She will continue with Nystatin and was given 1 dose of Diflucan which has helped. Given that she is able to take some oral intake today, will work to titrate her off of IV fluids. She remains on DVT prophylaxis and will anticipate discharging hopefully tomorrow or Thursday. Until then, continue to monitor and treat appropriately. [facility][id number] [facility]
[2017-09-26] MEDS ORDERED: SODIUM CHL 0.9% 50ML MIN-BAG+ 50 ML IVPB ONE (19:08)
[2017-09-26] MEDS ORDERED: cefTRIAXone SODIUM 1 GM VIAL ONE (19:08)
[2017-09-26] MEDS ORDERED: cefTRIAXone SODIUM 1 GM in SODIUM CHL 0.9% 50ML MIN-BAG+ 50 ML IVPB SCH (21:00)
[2017-09-26] MEDS ORDERED: AZITHROMYCIN 250 MG TAB PO SCH (21:00)
[2017-09-26] MEDS ORDERED: ENOXAPARIN SODIUM 40 MG/0.4 ML SYG SUBCU SCH (21:00)
[2017-09-27 05:55] VITALS: TEMP 97.2
[2017-09-27] MEDS: PANTOPRAZOLE SODIUM IV 40 MG VIAL IV SCH (06:13)
[2017-09-27] MEDS: KCL 20 MEQ/NS 1,000 ML IVS PRN (06:14)
[2017-09-27] MEDS: IPRATROPIUM/ALBUTEROL 3 ML VIAL NEB SCH ×2 (07:25→12:11)
[2017-09-27] MEDS: CALCIUM CARBONATE-VITAMIN D 500 MG TAB PO SCH ×2 (08:56→15:04)
[2017-09-27] MEDS: PREGABALIN 100 MG CAP PO SCH ×2 (08:56→15:03)
[2017-09-27] MEDS: ALPRAZolam 0.5 MG TAB PO SCH ×2 (08:56→15:03)
[2017-09-27] MEDS: BIFIDOBACTERIUM INFANTIS 4 MG CAP PO SCH (08:56)
[2017-09-27] MEDS: FISH OIL 1,200 MG CAP PO SCH ×2 (08:57→15:03)
[2017-09-27] MEDS: NYSTATIN SUSPENSION 5 ML UD MT SCH ×2 (08:57→15:04)
[2017-09-27 10:45] VITALS: BP 162/66
[2017-09-27 12:14] VITALS: O2SAT 96
[2017-09-27] MEDS ORDERED: MAGNESIUM HYDROXIDE 30 ML UD PO ONE (12:50)
[2017-09-27] MEDS: NYSTATIN POWDER 15GM BTTL TOP SCH ×2 (13:21→15:04)
--- NOTE | 2017-09-28 08:04 | DS ---
DISCHARGE DIAGNOSIS: 1. Chronic obstructive pulmonary disease with an acute exacerbation requiring pulmonary hygiene, bronchodilation and eventually corticosteroid anti- inflammatory treatment, having failed to respond to outpatient treatment plan. 2. Associated acute bronchitis, having failed outpatient treatment program requiring ongoing treatment, showing some improve clinical response. 3. Oral thrush, symptomatic to the point that the patient was unable to take oral medications prior to her admission, showing some improvement. 4. Intertrigo of the panniculus of the abdomen, showing good response to Nystatin and drying topical therapy. 5. Significant obesity with body mass index of 46.1. 6. Mild hypokalemia, improved. 7. Mild dehydration, improved with fluid supplementation. HISTORY OF PRESENT ILLNESS: This 67-year-old, white female who lives by herself at home was admitted to the hospital after EMS brought her to the Emergency Room because of significant symptoms of respiratory distress with cough, shortness of breath. She had failed outpatient therapy. She is followed in Dr. Rapp' clinic. She required institution of pulmonary hygiene with postural percussion and drainage as well as bronchodilation as well as anti-inflammatory treatment to assist with her ongoing pulmonary needs. Oral thrush was noted and was diagnosed as well as yumiko skin involvement of folds of abdominal skin. Constipation is to be approached with some Milk of Magnesia and some hemorrhoids with Anusol HC suppositories. Her condition slowly improved to the point that she is able to get around able to care for her basis needs with home health assistance when she gets home. She is on oxygen all the time at home, but has a very extended distribution of oxygen with a long tube, unfortunately contributing to increased resistance and decreasing the adequacy of the flow. Suggest home health to reposition the oxygen concentrator to allow for improved distribution with a shorter tube system to nasal cannula distribution. LABORATORY: White count was 7,100 on admission, hemoglobin 12.5 on discharge. Initial blood gas showed 7.47 pH, bicarb 27, PO2 low at 67, while PCO2 38. Chemistries showed potassium 3.3, up to 3.6 with supplementation, BUN 13 on discharge, glucose 153, hemoglobin A1c 5.4. Calcium 8.9. Troponin 0. Beta natriuretic peptide 25, albumin 3.9. Urinalysis showed some bilirubinuria. Urine culture negative at 48 hours. Chest x-ray prior to discharge revealed no acute pulmonary findings, yet peribronchial and interstitial thickening is evident, possibly suggesting viral illness versus reactive airway disease versus some associated interstitial edema, showing some improvement. HOSPITAL COURSE: The patient was still quite anxious at the time of sending home. She did not know how she was going to get home and the nurses have been helpful in trying to arrange for proper transportation. The patient does have a dog at home that needs ongoing care and she does not have anyone available to give the dog care. PLAN: The patient is discharged home to have followup with Dr. Rapp in the next week. She is encouraged to call tomorrow or Thursday for an appointment. She is to continue with her medication treatments 3 times a day to assist with bronchodilation because she stopped taking these med-neb treatments many months before. She states she does have adequate medications to go in the med-nebs. See the home medication list. She will continue with Nystatin oral suspension for a few days as well as azithromycin 250 mg a day for an additional 5 days. She is to try some Anusol suppositories for the hemorrhoids and Milk of Magnesia and MiraLAX which she has at home for the chronic constipation with her last bowel movement 2 days ago, which was a very large movement. [facility] is to continue with helping her at her home and may be able to help get her back to her home today. Return if not improving. #[id number] [facility]
== END 2017-09-27 15:40 | disposition home health service (06) ==
LOC: ER 14:52 → MS 19:01
PROVIDERS: ADMIT Nurse Practitioner Family; ATTEND Emergency Medicine
DX: J44.1 Chronic obstructive pulmonary disease with (acute) exacerbation (principal); J20.9 Acute bronchitis, unspecified; J44.0 Chronic obstructive pulmonary disease with (acute) lower respiratory infection; B37.0 Candidal stomatitis; L30.4 Erythema intertrigo; E66.01 Morbid (severe) obesity due to excess calories; E87.6 Hypokalemia; E86.0 Dehydration; E87.8 Other disorders of electrolyte and fluid balance, not elsewhere classified; Z68.42 Body mass index [BMI] 45.0-49.9, adult; Z91.14 Patient's other noncompliance with medication regimen; Z99.81 Dependence on supplemental oxygen; Z79.52 Long term (current) use of systemic steroids; Z79.899 Other long term (current) drug therapy; Z88.7 Allergy status to serum and vaccine; Z98.84 Bariatric surgery status
CPT/HCPCS: 36415 ×3; 36600; 71045 ×2; 80048; 80053; 81001; 82550; 82553; 82803; 82805; 83036; 83880; 84484; 85025 ×2; 87086; 93005; 94640 ×8; 94667 ×2; 94668; 94760 ×8; 96365; 96366 ×2; 96367; 96372 ×2; 96375 ×3; 96376 ×2; 99284; J0696 ×2; J1650 ×2; J2930 ×4; J3475; J3480 ×5; J7050 ×2; J7620 ×9; Q0144 ×2

== ENCOUNTER → 2017-12-23 | Outpatient (CLI) | payer MEDICARE, MEDICAID | LOC: BFHH 12:18 | PROVIDERS: ATTEND Family Medicine | DX: I11.0 Hypertensive heart disease with heart failure (principal); I50.42 Chronic combined systolic (congestive) and diastolic (congestive) heart failure ==

== ENCOUNTER → 2018-08-06 | Outpatient (CLI) | payer MEDICARE, MEDICAID | LOC: BFHH 13:16 | PROVIDERS: ATTEND Family Medicine | DX: I11.0 Hypertensive heart disease with heart failure (principal); F31.9 Bipolar disorder, unspecified; I50.42 Chronic combined systolic (congestive) and diastolic (congestive) heart failure; J44.1 Chronic obstructive pulmonary disease with (acute) exacerbation; E66.01 Morbid (severe) obesity due to excess calories; E03.9 Hypothyroidism, unspecified ==

== ENCOUNTER → 2019-01-31 | Outpatient (CLI) | payer MEDICARE, MEDICAID | LOC: GMAJ 14:50 | PROVIDERS: ATTEND Family Medicine | DX: Z79.899 Other long term (current) drug therapy (principal); G89.4 Chronic pain syndrome ==

== ENCOUNTER → 2019-02-23 | Outpatient (CLI) | payer MEDICARE, MEDICAID ==
--- NOTE | 2019-02-24 11:21 | MRI ---
EXAM DESCRIPTION: Lumbar Spine w/o Contrast : Magnetic Resonance Imaging. CLINICAL HISTORY: RADICULOPATHY LUMBAR REGION COMPARISON: MRI scan lumbar spine noncontrast 07/19/2014. TECHNIQUE: Multiplanar, multiple standard sequences, non contrast MRI, lumbar spine. FINDINGS: L5-S1: Disc space well demonstrated on axial T2 series 501, image 3. Disc space is expanded into the concave L5 inferior endplate. Minimal midline bulge. Disc bulge into the left foramen abutting the exiting left L5 nerve. Hypertrophic endplate changes greater on the right than left. Moderate to severe right bony foraminal narrowing. Hypertrophic facet arthrosis and posterior flavum ligament hypertrophy more right than left. Minimal progression since the prior study. L4-L5: Minimal disc desiccation with expansion into the concave superior and inferior endplates. Minimal bulge into the bilateral foramina but not the canal. Bilateral mild hypertrophic facet arthrosis and thickened ligaments. Mild canal narrowing. Moderate right foraminal narrowing and mild left foraminal narrowing. Stable since the prior study. L3-L4: Minimal disc desiccation with expansion of the disc into the concave superior and inferior endplates. Disc bulge also into the left foramen which is moderately narrowed. Moderate to severe bony narrowing of the right foramen. Minimal bilateral facet hypertrophic arthrosis and ligament thickening with borderline mild canal narrowing. L2-L3: Minimal disc desiccation with expansion of the disc into the concave inferior and superior endplates. Spondylosis changes posterior left endplates. Mild to moderate left foraminal narrowing with mild right foraminal narrowing. Posterior mild hypertrophic facet arthrosis and thickened ligaments with mild canal narrowing. L1-L2: Disc desiccation with anterior endplate bulge and endplate ridging. Disc expanding into the superior and inferior concave endplates. Mild posterior disc bulge with endplate reactive changes. Bilateral severe foraminal narrowing or mild stenosis encroaching on the bilateral L1 nerves. Anterior bony fusion of upper L1, T12, and T11 anterior endplates and vertebral bodies with bony fusion also in the anterior T12-L1 endplate. T11-12 endplate is almost completely closed. Retropulsion of the T12 vertebral body 4 to 5 cm, more superior than inferior compared to the endplates above and below this segment. The retropulsed bone is abutting the conus which terminates at the T12 level with minimal mass effect. Borderline canal stenosis. No significant change from the prior study. L3-S1 levoscoliosis and T10-L2 dextroscoliosis. Paravertebral soft tissues are unremarkable. Otherwise normal marrow signal in the remaining vertebral bodies and the posterior elements. Vertebral bodies demonstrate no new compression at any level. IMPRESSION: 1. Multiple concavities of the lumbar endplates resulting in "fish-mouth deformity" appearance of the disc spaces. No significant change since the prior study. No marrow edema in the endplates. This deformity can be seen from osteoporosis, corticosteroid use, Paget's disease, or multiple myeloma. 2. Stable anterior interbody fusion of T11, T12, and L1. Borderline central canal stenosis of the retropulsed segment of the T12 abutting or impressing on the conus which terminates at the T12-L1 disc space. 3. L5-S1 disc bulge into the left foramen abutting the exiting left L5 nerve. Severe right bony foraminal narrowing. Stable since the prior study. 4. Moderate right bony and disc foraminal narrowing at L4-L5. No change since the prior study. 5. Moderate to severe bony narrowing of the right L3-L4 foramen, stable since the prior study. Mild to moderate left L2-3 foraminal narrowing. 6. Moderate to severe or mildly stenotic bilateral foramina at L1-L2 with possible compromise bilateral L1 nerves. This has progressed since the prior study. Electronically signed by: Eulalio Cat MD 02/24/2019 11:19 AM CDT
== END ==
LOC: MRI 11:30
PROVIDERS: ATTEND Family Medicine
DX: M51.16 Intervertebral disc disorders with radiculopathy, lumbar region (principal); M48.04 Spinal stenosis, thoracic region; M48.061 Spinal stenosis, lumbar region without neurogenic claudication; Z98.1 Arthrodesis status

== ENCOUNTER → 2019-11-30 | Outpatient (CLI) | payer MEDICARE, MEDICAID | LOC: NC 10:48 | PROVIDERS: ATTEND Family Medicine | DX: I11.0 Hypertensive heart disease with heart failure (principal); I50.20 Unspecified systolic (congestive) heart failure; M06.9 Rheumatoid arthritis, unspecified; J44.9 Chronic obstructive pulmonary disease, unspecified; I08.3 Combined rheumatic disorders of mitral, aortic and tricuspid valves ==

== ENCOUNTER 2020-04-01 15:31 | Emergency (ER) | payer MEDICARE, MEDICAID ==
[2020-04-01] MEDS ORDERED: risperiDONE 1 MG TAB PO ONE (15:52)
[2020-04-01] MEDS ORDERED: risperiDONE 0.25 MG TAB ONE (16:12)
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
[2020-04-01 18:50] VITALS: BP 128/68; O2SAT 97
== END 2020-04-01 18:44 | disposition home or self-care (01) ==
LOC: ER 15:31
DX: F41.9 Anxiety disorder, unspecified (principal); F22 Delusional disorders; F51.05 Insomnia due to other mental disorder; J44.9 Chronic obstructive pulmonary disease, unspecified; I50.9 Heart failure, unspecified; Z79.899 Other long term (current) drug therapy; Z88.7 Allergy status to serum and vaccine

== ENCOUNTER 2020-04-21 06:25 | Emergency (ER) | payer MEDICARE, MEDICAID ==
[2020-04-21] MEDS ORDERED: LORazepam 0.5 MG TAB PO ONE (07:14)
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
[2020-04-21 10:27] VITALS: BP 151/84; TEMP 96.1; O2SAT 97
== END 2020-04-21 10:15 | disposition home or self-care (01) ==
LOC: ER 06:25
DX: F31.9 Bipolar disorder, unspecified (principal); G47.01 Insomnia due to medical condition; J44.9 Chronic obstructive pulmonary disease, unspecified; I50.9 Heart failure, unspecified; Z79.899 Other long term (current) drug therapy; Z88.7 Allergy status to serum and vaccine

== ENCOUNTER 2020-05-02 12:25 | Emergency (ER) | payer MEDICARE, MEDICAID ==
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
--- NOTE | 2020-05-02 13:07 | RAD ---
EXAM: Chest,1 View CLINICAL HISTORY: aMs TECHNIQUE: Chest 1 view COMPARISON STUDY: Chest x-ray from December 17, 2017 FINDINGS: Hyperexpansion without consolidation, effusion, or edema. The heart is not enlarged. No acute osseous abnormality. Vascular calcifications are present. IMPRESSION: Hyperexpansion can be seen with emphysema, reactive airway disease or deep voluntary breath. No acute abnormality is identified. Electronically signed by: Anirudh Otero MD 05/02/2020 1:05 PM CDT
--- NOTE | 2020-05-02 13:08 | CT ---
EXAM: Head CLINICAL HISTORY: ams COMPARISON STUDY: CT head from April 15, 2020 TECHNICAL: Non-contrasted CT images of the brain were performed. FINDINGS: There is mild diffuse cerebral and cerebellar atrophy. There are mild periventricular white matter low-density changes suggesting microvascular disease. Small basal ganglion lacunar infarcts are present. There is no intracranial hemorrhage, mass, or mass effect. There are no imaging findings that would suggest an acute territorial infarction. The calvarium is intact. IMPRESSION: MILD ATROPHY AND MICROVASCULAR WHITE MATTER CHANGES WITHOUT CHANGES OF AN ACUTE INTRACRANIAL ABNORMALITY. ACUTE INFARCT MAY BE INAPPARENT ON A BACKGROUND OF MICROVASCULAR DISEASE. MRI CAN BE PERFORMED IF CLINICALLY INDICATED. This exam was performed according to our departmental dose-optimization program, which includes automated exposure control, adjustment of the mA and/or kV according to patient size and/or use of iterative reconstruction technique. Electronically signed by: Anirudh Otero MD 05/02/2020 1:06 PM CDT
[2020-05-02] MEDS ORDERED: cefTRIAXone SODIUM 1 GM in SODIUM CHL 0.9% 50ML MIN-BAG+ 50 ML IVPB ONE (14:29)
[2020-05-02] MEDS ORDERED: LIDOCAINE 1% 2 ML VIAL INJ ONE (14:33)
[2020-05-02] MEDS ORDERED: cefTRIAXone SODIUM 1 GM VIAL ONE (14:33)
[2020-05-02 22:20] VITALS: TEMP 97.6
[2020-05-02 23:19] VITALS: BP 127/83; O2SAT 97
== END 2020-05-02 23:25 ==
LOC: ER 12:25
DX: F91.9 Conduct disorder, unspecified (principal); I50.9 Heart failure, unspecified; J44.9 Chronic obstructive pulmonary disease, unspecified; Z79.899 Other long term (current) drug therapy; Z88.7 Allergy status to serum and vaccine; Z91.14 Patient's other noncompliance with medication regimen; Z20.828 Contact with and (suspected) exposure to other viral communicable diseases
CPT/HCPCS: 36415; 70450; 71045; 80053; 80307; 81001; 84443; 84484; 85025; 87086; 87486; 87581; 87633; 87635; 93005; J0696

== ENCOUNTER 2020-05-31 19:54 | Emergency (ER) | payer MEDICARE, MEDICAID ==
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
[2020-05-31] MEDS ORDERED: POTASSIUM CHLORIDE ELIXIR 20 MEQ/15 ML UD PO ONE (21:31)
[2020-05-31 21:49] VITALS: TEMP 97.4
[2020-05-31 22:43] VITALS: O2SAT 96
[2020-05-31 23:54] VITALS: BP 132/82
== END 2020-05-31 23:38 | disposition home or self-care (01) ==
LOC: ER 19:54
DX: F41.9 Anxiety disorder, unspecified (principal); E87.6 Hypokalemia; F31.9 Bipolar disorder, unspecified; I50.9 Heart failure, unspecified; J44.9 Chronic obstructive pulmonary disease, unspecified; Z79.899 Other long term (current) drug therapy; Z88.7 Allergy status to serum and vaccine

== ENCOUNTER 2020-06-01 16:57 | Emergency (ER) | payer MEDICARE, MEDICAID ==
[2020-06-01] MEDS ORDERED: POTASSIUM CHLORIDE ELIXIR 20 MEQ/15 ML UD PO ONE (17:10)
[2020-06-01] MEDS ORDERED: ALPRAZolam 0.25 MG TAB PO ONE (17:49)
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
[2020-06-01 18:33] VITALS: BP 117/78; TEMP 97.9; O2SAT 94
== END 2020-06-01 19:01 | disposition home or self-care (01) ==
LOC: ER 16:57
DX: F41.9 Anxiety disorder, unspecified (principal); I50.9 Heart failure, unspecified; J44.9 Chronic obstructive pulmonary disease, unspecified; Z79.899 Other long term (current) drug therapy; Z88.7 Allergy status to serum and vaccine

== ENCOUNTER 2020-06-03 14:04 | Emergency (ER) | payer MEDICARE, MEDICAID ==
[2020-06-03] MEDS ORDERED: MAGNESIUM CITRATE 300 ML BTTL PO ONE (14:47)
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
[2020-06-03 15:39] VITALS: O2SAT 99
[2020-06-03 16:22] VITALS: TEMP 97.6
[2020-06-03 18:07] VITALS: BP 136/82
== END 2020-06-03 18:01 | disposition home or self-care (01) ==
LOC: ER 14:04
DX: K59.00 Constipation, unspecified (principal); F99 Mental disorder, not otherwise specified; I50.9 Heart failure, unspecified; J44.9 Chronic obstructive pulmonary disease, unspecified; Z79.899 Other long term (current) drug therapy; Z88.7 Allergy status to serum and vaccine

== ENCOUNTER → 2020-07-09 | Outpatient (CLI) | payer MEDICARE, MEDICAID | LOC: BFHH 13:06 | PROVIDERS: ATTEND Family Medicine | DX: E87.6 Hypokalemia (principal); I11.0 Hypertensive heart disease with heart failure; I50.41 Acute combined systolic (congestive) and diastolic (congestive) heart failure; I50.9 Heart failure, unspecified; J44.9 Chronic obstructive pulmonary disease, unspecified; F41.9 Anxiety disorder, unspecified ==